=== PATIENT | female | born 1990 | race Asian ===

== ENCOUNTER → 2018-07-11 15:58 | Outpatient (CLI) | payer SELFPAY ==
[2016-07-13 19:38] VITALS: BMI 22.4
== END ==
PROVIDERS: Family Provider Family Medicine; PCP Family Medicine; Referring Provider Otolaryngology; Visit Provider Otolaryngology
DX: J02.9 Acute pharyngitis, unspecified (principal)
CPT/HCPCS: 87070; 87077; 87186

== ENCOUNTER → 2020-05-05 07:57 | Outpatient (CLI) | payer MEDICAID, SELFPAY ==
[2020-04-14 14:42] VITALS: BMI 27.0
[2020-05-05 09:01] LABS: Absolute Lymphocyte Count 1.67 X10^3/uL (0.83-4.51); Basophil# 0.04 X10^3/uL; Basophil% 0.5 % (0-1); Eosinophil# 0.14 X10^3/uL; Eosinophils% 1.9 % (0-5); Hematocrit 31.6 % (37-47); Hemoglobin 10.6 g/dL (12.0-15.0); Lymphocyte # 1.67 X10^3/ul (4.0); Lymphocyte % 22.5 % (19-41); Mean Corp Hgb Conc 33.5 g/dL (32-36); Mean Corpuscular Hgb 29.6 pg (27.0-32.0); Mean Corpuscular Volume 88.3 fL (81-99); Mean Platelet Vol. 9.7 fl (6.2-12.0); Monocyte# 0.49 X10^3/uL; Monocyte% 6.6 % (0-10); NRBC Flagged by Analyzer 0 % (0-5); Neutrophil # 4.96 X10^3/uL (2.7-7.7); Neutrophil % 66.9 % (47-70); Platelet Count 218 K/mm3 (150-450); RBC Distribution Width SD 42.3 fl (35.1-43.9); Red Blood Count 3.58 M/mm3 (4.2-5.4); White Blood Count 7.4 K/mm3 (4.4-11.0)
[2020-05-05 09:19] LABS: Glucose Challenge Gest 1H 50g 159 mg/dL (70-140)
== END ==
PROVIDERS: PCP Family Medicine; Referring Provider Obstetrics & Gynecology; Visit Provider Obstetrics & Gynecology
DX: Z34.90 Encounter for supervision of normal pregnancy, unspecified, unspecified trimester (principal); Z13.1 Encounter for screening for diabetes mellitus
CPT/HCPCS: 36415; 82950; 85025; 87086; 87088

== ENCOUNTER → 2020-05-10 10:05 | Outpatient (CLI) | payer MEDICAID, SELFPAY ==
[2020-05-05 08:20] VITALS: BMI 27.1
[2020-05-10 11:04] LABS: Glucose GTT-Gestation. Fasting 82 mg/dL (<105)
== END ==
PROVIDERS: PCP Family Medicine; Referring Provider Nurse Practitioner Women's Health; Visit Provider Nurse Practitioner Women's Health
DX: O99.810 Abnormal glucose complicating pregnancy (principal); Z3A.00 Weeks of gestation of pregnancy not specified
CPT/HCPCS: 36415; 82951; 82952

== ENCOUNTER → 2020-05-24 08:05 | Outpatient (CLI) | payer OTHER, MEDICAID, SELFPAY ==
[2020-05-19 15:04] VITALS: BMI 27.6
--- NOTE | 2020-05-24 08:09 | US_ITS ---
STUDY: SECOND AND THIRD TRIMESTER OBSTETRICAL ULTRASOUND - LIMITED REASON FOR EXAM: Female, 29 years old GROWTH, GESTATIONAL DIABETES LMP: 10/22/2019. PRIOR ULTRASOUND: None. TECHNIQUE: Transabdominal TECHNICAL QUALITY: Adequate. FINDINGS: There is a single intrauterine fetus. The fetus is in a cephalic presentation. There is demonstrated cardiac activity with a heart rate of 145 bpm. There is a normal amniotic fluid volume. The largest amniotic fluid pocket measures 6.6 cm. The amniotic fluid index (BROOKLYNN) is 23.5 cm. This is suggestive polyhydramnios. The placenta is posterior in location and is not low lying. There are Grade 1 placental changes. The cervix measures 3.1 cm in length. BIOMETRY: BPD: 7.82 cm: 31 weeks, 2 days HC: 28.94 cm: 31 weeks, 6 days AC: 27.89 cm: 31 weeks, 6 days FL: 5.23 cm: 27 weeks, 6 days Age by LMP: 30 weeks, 5 days. MAYURI by LMP: 07/28/2020. age by current US: 30 weeks, 6 days. MAYURI by current US: 07/27/2020. Estimated weight: 1612 grams, +/- 239 grams, 31.3 percentile. US/OB Limited With Biometrics IMPRESSION: Single live uterine gestation with a mean gestational age of 30 weeks and 5 days. Polyhydramnios. Electronically Signed: Félix Matias, at 12:59 EST , Service support ,
== END ==
PROVIDERS: PCP Family Medicine; Referring Provider Obstetrics & Gynecology; Visit Provider Obstetrics & Gynecology
DX: O24.419 Gestational diabetes mellitus in pregnancy, unspecified control (principal); Z3A.30 30 weeks gestation of pregnancy
CPT/HCPCS: 76816

== ENCOUNTER 2020-06-09 11:00 | Outpatient (RCR) | payer OTHER, SELFPAY ==
[2020-05-19 15:04] VITALS: BMI 27.6
== END 2020-06-09 23:59 | disposition home or self-care (01) ==
LOC: DC 11:00
PROVIDERS: PCP Family Medicine; Visit Provider Obstetrics & Gynecology
DX: Z71.3 Dietary counseling and surveillance (principal); O24.419 Gestational diabetes mellitus in pregnancy, unspecified control; Z3A.00 Weeks of gestation of pregnancy not specified
CPT/HCPCS: 97802; G0108

== ENCOUNTER 2020-06-16 14:04 | Outpatient (RCR) | payer MEDICAID, SELFPAY ==
[2020-06-04 16:06] VITALS: BMI 29.0
== END 2020-07-11 23:59 ==
LOC: DC 14:04
PROVIDERS: PCP Family Medicine; Visit Provider Obstetrics & Gynecology
DX: Z71.3 Dietary counseling and surveillance (principal); O24.419 Gestational diabetes mellitus in pregnancy, unspecified control; Z3A.00 Weeks of gestation of pregnancy not specified

== ENCOUNTER → 2020-06-21 08:10 | Outpatient (CLI) | payer OTHER, MEDICAID, SELFPAY ==
[2020-05-19 15:04] VITALS: BMI 27.6
[2020-06-18 15:39] VITALS: BMI 29.0
--- NOTE | 2020-06-21 08:18 | US_ITS ---
STUDY: SECOND AND THIRD TRIMESTER OBSTETRICAL ULTRASOUND REASON FOR EXAM: Female, 29 years old growth LMP: 10/22/2019. TECHNIQUE: Transabdominal TECHNICAL QUALITY: Adequate. PRIOR ULTRASOUND: Comparison is made with prior study dated 05/24/2020. FINDINGS: There is a single intrauterine fetus. The fetus is in a cephalic presentation. There is demonstrated cardiac activity with a heart rate of 133 bpm. There is a normal amniotic fluid volume. The largest amniotic fluid pocket measures 11.5 cm. The amniotic fluid index (BROOKLYNN) is 28.4 cm. This is elevated. The placenta is fundal and posterior in location. There are Grade 2 placental changes. The cervix measures 3.7 cm in length. The adnexal regions are not visualized. BIOMETRY: BPD: 8.5 cm: 34 weeks, 1 days HC: 30.5 cm: 33 weeks, 6 days AC: 31.5 cm: 35 weeks, 2 days FL: 6.4 cm: 32 weeks, 6 days CI: 84% FL/BPD: 75% FL/HC: FL/AC: 20% HC/AC: 0.97 age by current US: 33 weeks, 3 days. MAYURI by current US: 08/06/2020. Estimated weight: 2476 grams, +/- 371 grams, 43 %. age by prior US: 34 weeks, 6 days. MAYURI by prior US: 07/27/2020. Age by LMP: 34 weeks, 5 days. MAYURI by LMP: 07/28/2020. US/OB Limited With Biometrics IMPRESSION: Single live intrauterine gestation with a mean gestational age of 34 weeks and 6 days. The measurements obtained today following the normal expected range. Elevated amniotic fluid index. Electronically Signed: Félix Matias MD at 9:23 EST , Service support ,
== END ==
PROVIDERS: PCP Family Medicine; Referring Provider Obstetrics & Gynecology; Visit Provider Obstetrics & Gynecology
DX: O24.419 Gestational diabetes mellitus in pregnancy, unspecified control (principal); Z3A.34 34 weeks gestation of pregnancy
CPT/HCPCS: 76816

== ENCOUNTER → 2020-07-02 | Outpatient (CLI) | payer OTHER, MEDICAID, SELFPAY ==
[2020-07-02 15:29] VITALS: BMI 29.9
== END | disposition home or self-care (01) ==
LOC: LABSPEC 16:33
PROVIDERS: PCP Family Medicine; Referring Provider Obstetrics & Gynecology; Visit Provider Obstetrics & Gynecology
DX: Z34.90 Encounter for supervision of normal pregnancy, unspecified, unspecified trimester (principal)
CPT/HCPCS: 87081

== ENCOUNTER → 2020-07-12 14:15 | Outpatient (CLI) | payer OTHER, SELFPAY ==
[2020-07-02 15:29] VITALS: BMI 29.9
[2020-07-09 15:29] VITALS: BMI 29.6
== END ==
PROVIDERS: Nurse Practitioner Women's Health; PCP Family Medicine; Visit Provider Obstetrics & Gynecology
DX: Z20.822 Contact with and (suspected) exposure to COVID-19 (principal)
CPT/HCPCS: 87635; C9803; U0005; U0003

== ENCOUNTER → 2020-07-19 14:31 | Outpatient (CLI) | payer OTHER, MEDICAID, SELFPAY ==
[2020-05-19 15:04] VITALS: BMI 27.6
--- NOTE | 2020-07-19 14:33 | US_ITS ---
STUDY: OBSTETRICAL ULTRASOUND - BIOPHYSICAL PROFILE REASON FOR EXAM: Female, 29 years old. well being. LMP: 10/22/2019. PRIOR ULTRASOUND: 07/19/2020, 06/21/2020 and 05/24/2019 TECHNIQUE: Transabdominal TECHNICAL QUALITY: Adequate. FINDINGS: There is a single intrauterine fetus. The fetus is in a cephalic presentation. There is demonstrated cardiac activity with a heart rate of 6.14 bpm. There is a normal amniotic fluid volume. The largest amniotic fluid pocket measures 6.14 cm. The amniotic fluid index (BROOKLYNN) is 18.08 cm. The placenta is fundal in location. There are Grade 3 placental changes. Age by LMP: 38 weeks, 5 days. MAYURI by LMP: 07/28/2020.. age by initial US: 38 weeks, 6 days. MAYURI by initial US: 07/27/2020. age by most recent US: 37 weeks, 3 days. MAYURI by most recent US: 08/06/2020. age by current US: 36 weeks, 5 days. MAYURI by current US: 08/11/2020. Gender: Indeterminant BIOPHYSICAL PROFILE: Breathing Movements (FBM): 2 Gross Body Movements (GBM): 2 Tone (FT): 2 Amniotic Fluid Volume (AFV): 2 TOTAL SCORE: 8 / 8 US/Biophysical Prof W/O Non Stres IMPRESSION: Normal biophysical profile of 12/19. Electronically Signed: Bharat Zhu DO at 16:22 EST Tel [phone], Service support ,
--- NOTE | 2020-07-19 14:33 | US_ITS ---
STUDY: SECOND AND THIRD TRIMESTER OBSTETRICAL ULTRASOUND - LIMITED REASON FOR EXAM: Female, 29 years old. growth. Patient scheduled for on July 22. LMP: 10/22/2019. PRIOR ULTRASOUND: 06/21/2020 and 05/24/2020 TECHNIQUE: Transabdominal TECHNICAL QUALITY: Adequate. FINDINGS: There is a single intrauterine fetus. The fetus is in a cephalic presentation. There is demonstrated cardiac activity with a heart rate of 148 bpm. There is a normal amniotic fluid volume. The largest amniotic fluid pocket measures 6.14 cm. The amniotic fluid index (BROOKLYNN) is 18.08 cm. There is debris within the amniotic fluid. The placenta is fundal in location. There are Grade there are placental changes. The cervix is obscured. BIOMETRY: BPD: 8.99 cm: 36 weeks, 2 days HC: 33.94 cm: 39 weeks, 0 days AC: 34.17 cm: 38 weeks, 0 days FL: 6.55 cm: 33 weeks, 5 days Age by LMP: 38 weeks, 5 days. MAYURI by LMP: 07/28/2020. age by initial US: 38 weeks, 6 days. MAYURI by initial US: 07/27/2020. age by most recent US: 37 weeks, 3 days. MAYURI by most recent US: 08/06/2020 age by current US: 36 weeks, 5 days. MAYURI by current US: 08/11/2020. Estimated weight: 3039 grams, +/- 456 grams, 23 percentile. Gender: Indeterminant US/OB Limited With Biometrics IMPRESSION: 1. Live single intrauterine at 36 weeks, 5 days. MAYURI is 08/11/2020. This lags approximately 2 weeks behind initial ultrasound. Low position there was difficulty in obtaining head measurements which may contribute to this differential. This does however correlate with the most recent ultrasound of June 21 which placed the AMBULATORY CARE NURSE 08/06/2020. 2. EFW of 3039 g. 3. BROOKLYNN of 18.08 cm. Well in the normal range (greater than expected for the gestational age. 4. Fundal grade 3 placenta. 5. VERTEX presentation Electronically Signed: Bharat Zhu DO at 16:20 EST Tel [phone], Service support ,
== END ==
LOC: OPUS 14:32 → US 14:33
PROVIDERS: PCP Family Medicine; Referring Provider Obstetrics & Gynecology; Visit Provider Obstetrics & Gynecology
DX: O40.9XX3 Polyhydramnios, unspecified trimester, fetus 3 (principal); Z3A.36 36 weeks gestation of pregnancy; O24.419 Gestational diabetes mellitus in pregnancy, unspecified control
CPT/HCPCS: 76816; 76819

== ENCOUNTER 2020-07-22 09:15 | Inpatient (IN) | payer OTHER, MEDICAID, SELFPAY ==
[2020-05-05 08:20] VITALS: BMI 27.1
[2020-07-22] VITALS (18 sets, daily range): BP systolic 97–129; BP diastolic 50–78; PULSE 68–93; RESP 12–18; TEMP 36.1–36.8; O2SAT 96–100; BMI 30.1
[2020-07-22] MEDS: Lactated Ringers 1,000 ML 999 ML IV (09:55)
--- NOTE | 2020-07-22 10:15 | HP.PCM_ITS ---
- Problem List (1) 36 weeks gestation of Status: Acute Comment: electronic covid test ordered 06/30/20. [place] 07/12/20 1:40m NEGATIVE COVID (2) Anemia affecting Status: Acute Qualifiers: Comment: iron added (3) Gestational diabetes Status: Acute Comment: Dx based on persistently elevated home BGT monitoring. Endo referral. Shot Core Drill Operator Helper referral. Growths q4w. Discussed timing of delivery based on glycemic control. (4) History of tetanus, diphtheria, and acellular pertussis booster vaccination (Tdap) Status: Acute Comment: 05/05/20 (5) Hx of section Status: Acute Comment: Op note reviewed after NOB - arrest of dilation and CPD documented by Dr. Webb. Plan RCD. RLTCS scheduled 07/22/20 @ 12 (6) Influenza vaccination declined Status: Acute (7) Major depression Status: Acute Comment: On zoloft. encouraged counseling. had traumatic delivery with previous experience- discussed details and reframing. (8) Polyhydramnios affecting Status: Acute Comment: growth 06/21- BROOKLYNN 28 (9) Status: Acute Qualifiers: Comment: Quad screen done with [facility]. NL anatomy 03/02/20; Urine tox is neg (10) Supervision of normal Status: Acute Qualifiers: Comment: JORGE L [facility]@17w PRR [facility] 07/28/20 [facility]: [facility], Spouse: Kishan History and Physical Date of Admission: 07/22/20 Intake Vital Signs 07/16/20 Height 5 ft 1 in 07/16/20 Weight: 159 lb 07/16/20 BMI 30.0 07/16/20 BP 100/72 Intake Visit Reasons: 38WK OB / NST Rate And Cost Analyst Required: No Is patient in pain?: No Allergies clarithromycin [From Biaxin] Allergy (Verified 07/16/20 15:52) Hives Medications cetirizine 10 mg tablet 10 mg PO DAILY 02/18/20 [History Confirmed 07/16/20] docosahexaenoic acid 200 mg capsule mg PO 02/18/20 [History Confirmed 07/16/20] fluticasone propionate 50 mcg/actuation nasal spray,suspension 1 spray INTRANASAL DAILY PRN 02/18/20 [History Confirmed 07/16/20] buspirone 5 mg tablet 5 mg PO BID PRN #60 tab 06/04/20 [Rx Confirmed 07/16/20] sertraline 100 mg tablet 150 mg PO DAILY #45 tab 06/04/20 [Rx Confirmed 07/16/20] Last Menstral Period: 10/23/19 : No PFSH PFSH Medical History Major depression (Acute) Surgical History S/P (Resolved) Family History Grandfather Myocardial infarction Social History (Updated 07/16/20 @ 16:[address] Lyudmila Adams MD) Smoking Status: Former smoker alcohol intake: never substance use type: does not use caffeine: Yes what type of physical activity do you participate in: none seatbelt use: always do you feel safe at home: Yes additional social history: [employer] at [employer] Patient works at [email or web address] Pregancy History 2 Elective abortions Hx Para 1 Spontaneous abortions Hx # Term Pregnancies Ectopic pregnancies Hx # Pregnancies Multiple births # of living children 1 Past Pregnancies Del. Date Name GA/Weeks Outcome Route Bth Weight Infant Gen Labor Lgth Anesthesia Del [facility] Provider FOB 11/13/12 [facility] 39 live - full term 7lbs 6oz Male [facility] Dr. Lopez No issues during , per patient csection due to brain swelling HPI 38WK OB / NST : Details: PJ CROWE is a 29 year old who presents for routine OB visit. OB Visit MAYURI Calculator Estimated Delivery Date Method Current WG Current Estimate 07/28/20 LMP (Certain) 38w 2d Expected Delivery Route/Plan planning RLTCS - h/o traumatic delivery with PTSD like symptoms regarding experience. Labor Preferences- : yes PP control planned: [] special requests: [] Specific Issue/Plans flu vaccine: no tdap vaccine: yes rhogam: na LARC form signed: yes movement and labor precautions reviewed. Problem list reviewed and updated with the most current plan of care details and appropriate orders placed. Relevant counseling for the gestational age provided. Continue routine care and follow up unless otherwise noted in visit notes/problem list details Initial Weight: Not Recorded Date EGA Weight BP Urine Prot Glucose FHR FuHt Pres Dilation Effaced St Visit Note 02/18/20 17w 0d 130 lb 4 oz 112/72 Negative Negative 135 GP - JORGE L from [facility]. Oriented to practice. Denies LOF, VB, cramping. First movement while in office today! 03/17/20 21w 0d 135 lb 132/82 Negative Negative 145 22 SM- no vb cramping. reviewed nl us. 04/14/20 25w 0d 143 lb 120/80 150 25 GP - no LOF, VB, DFM, ctx. Denies complaints. Planning for RCD. GCT next visit. 05/05/20 28w 0d 144 lb 108/60 Negative Negative 155 28 MH-No VB, LOF. Good FM. Plans RCS with SM. Note to schedule. 28 wk labs, tdap, larc 05/19/20 30w 0d 146 lb 2 oz 128/70 Negative Negative 135 30 GP - no LOF, VB, DFM, ctx. Reviewed home BGTs - persistently elevated. Plan endo and aerosol supervisor referral. 06/04/20 32w 2d 154 lb 125/78 Negative Negative 135 33 SM- reviewed BS and mostly within goal, met with nurse yesterday for diet. discussed persistence anxiety and depression. recommend consistent counseling and 06/18/20 34w 2d 154 lb 116/58 Negative Negative 140 34 Cephalic SM- no vb lof good fm no regular ctx 06/21/20 34w 5d 152 lb nst only 07/02/20 36w 2d 158 lb 4 oz 120/70 Negative Negative 130 36 Cephalic 0 GP - no LOF, VB, DFM, ctx. GBS done today. NST reactive 07/09/20 37w 2d 157 lb Negative Negative 140 Cephalic SM- no vb lof good fm no regular ctx nst reactive 07/16/20 38w 2d 159 lb 100/72 Negative Negative 145 SM- no vb lof good but decreased fm no regular ctx will get bpp sunday Diagnostics Diagnostics Diagnostics Gest Glucose Tolerance MG/DL 05/10/20 Details: HIV: Urine Culture: Sequential Screen: NIPT Screen: ROS Const Reports system reviewed and no additional complaints, except as docu Card Reports system reviewed and no additional complaints, except as docu Resp Reports system reviewed and no additional complaints, except as docu GI Reports system reviewed and no additional complaints, except as docu, Reports n ausea Reports system reviewed and no additional complaints, except as docu Musc Reports system reviewed and no additional complaints, except as docu Exam Const General: cooperative, healthy appearing, comfortable, anxious HENMT Head: normal to inspection Nose: external nose normal Face and sinus: normal facial exam Neck Neck: normal visual inspection, full ROM, no lymphadenopathy Thyroid: thyroid normal Chest Chest palpation & inspection: normal inspection of the chest Resp Effort & Inspection: normal respiratory effort GI Inspection: normal to inspection Palpation: soft, other (gravid uterus) Other: vertex and appropriate size for gestational age Other: Cervical Exam: Extrem General: pedal edema Results POC Urinalysis 2 Dip (Clinic) Office Urine Glucose Negative Last Edit by Cande Monae on 07/16/20 15:58 Office Urine Protein Negative Last Edit by Cande Monae on 07/16/20 15:58 Assessment & Plan Problems 1. Influenza vaccination declined Z28. 2. Z34.90 Quad screen done with [facility]. NL anatomy 03/02/20; Urine tox is neg 3. Supervision of normal Z34.90 JORGE L [facility]@17w PRR [facility] 07/28/20 [facility], PC: Froylan, Spouse: Kishan 4. Hx of section Z98.891 Op note reviewed after NOB - arrest of dilation and CPD documented by Dr. Webb. Plan RCD. RLTCS scheduled 07/22/20 @ 12 5. Anemia affecting O99.019 iron added 6. Gestational diabetes O24.419 Dx based on persistently elevated home BGT monitoring. Endo referral. Shot Core Drill Operator Helper referral. Growths q4w. Discussed timing of delivery based on glycemic control. 7. Polyhydramnios affecting O40.9XX0 growth 28- BROOKLYNN 28 8. 36 weeks gestation of Z3A.36 electronic covid test ordered 06/30/20. [place] 07/12/20 1:40m NEGATIVE COVID 9. History of tetanus, diphtheria, and acellular pertussis booster vaccination (Tdap) Z92.29 05/05/20 10. Major depression F32.9 On zoloft. encouraged counseling. had traumatic delivery with previous experience- discussed details and reframing. plan RLTCS UPDATE- I have seen the patient and performed any clinically relevant updates to the history and physical exam. Lyudmila Adams MD
--- NOTE | 2020-07-22 10:18 | OP.PCM_ITS ---
Problem List (1) 36 weeks gestation of Status: Acute Comment: electronic covid test ordered 06/30/20. [place] 07/12/20 1:40m NEGATIVE COVID (2) Anemia affecting Status: Acute Qualifiers: Comment: iron added (3) Gestational diabetes Status: Acute Comment: Dx based on persistently elevated home BGT monitoring. Endo referral. Chain Offbearer referral. Growths q4w. Discussed timing of delivery based on glycemic control. (4) History of tetanus, diphtheria, and acellular pertussis booster vaccination (Tdap) Status: Acute Comment: 05/05/20 (5) Hx of section Status: Acute Comment: Op note reviewed after NOB - arrest of dilation and CPD documented by Dr. Webb. Plan RCD. RLTCS scheduled 07/22/20 @ 12 (6) Influenza vaccination declined Status: Acute (7) Major depression Status: Acute Comment: On zoloft. encouraged counseling. had traumatic delivery with previous experience- discussed details and reframing. (8) Polyhydramnios affecting Status: Acute Comment: growth 06/21- BROOKLYNN 28 (9) Status: Acute Qualifiers: Comment: Quad screen done with [facility]. NL anatomy 03/02/20; Urine tox is neg (10) Supervision of normal Status: Acute Qualifiers: Comment: JORGE L [facility]@17w PRR [facility] 07/28/20 [facility]: [place], Spouse: Kishan Delivery Classification: Scheduled Final MAYURI: 07/29/20 Gestational age: 39 Weeks and 1 Days Type of Anesthesia:: Spinal Special Medications: none Implants Used: none Date of Procedure: 07/22/20 Pre-Operative Diagnosis: [id number] previous cs Post-Operative Diagnosis: same Indications for : Repeat Elective Description of Procedure: Spinal anesthesia was placed without difficulty. Haji catheter was placed. The patient was placed in the dorsal supine position with leftward tilt. Patient was prepped and draped in the normal sterile fashion. Pfannenstiel skin incision was made with the scalpel and carried through to the underlying layer of fascia with the scalpel. Fascia was nicked in the midline and the incision extended laterally. The rectus bellies were dissected off superiorly and inferiorly with out complication both sharply and bluntly. The peritoneum was entered digitally. The incision was stretched and a low transverse uterine incision was made with the scalpel. The infant's head was delivered atraumatically followed by the anterior and posterior shoulders without compli cation the rest of the infant delivered. The cord was clamped and cut and the was handed off to awaiting nurse. The placenta was delivered spontaneously immediately following and was noted to be intact and have a three- vessel cord. The uterus was exteriorized cleared of all clots and debris, and the incision was closed in a double layer closure using #1 Monocryl. The ovaries and fallopian tubes were noted to be within normal limits. The uterus was returned to the maternal abdomen and gutters were cleared of all clots and debris. The peritoneum was closed with 3-0 Monocryl in a running fashion. Gloves were changed prior to fascial closure. Fascia was closed with 0 PDS in a running fashion. Subcutaneous tissue was copiously irrigated and the skin was closed with 3-0 Monocryl in a subcuticular fashion. Mepilex dressing was applied without complication. Patient was taken to recovery in stable condition. It was discussed with the patient that based on the clinical information obtained during this encounter, combined with her history, at this time I would recommend cesareans for future deliveries if further pregnancies are desired. Amniotic Membrane Rupture Type: Spontaneous Amniotic Fluid Description: Clear Placenta Disposition: [facility] Cord Entanglement: None Cord Vessel Description: 3 Vessels Esitmated Blood Loss (ml): 700 Infant Gender: Male Delayed cord clamping: Yes Antibiotic Given: Ancef 2 grams IV x1 Pt instructed on risks of surgery: Bleeding, Anesthesia Risks, Infection, Injury to surrounding structure(s) including bowel and bladder Complications: None - Admit VTE Documentation VTE Present on Admission: No VTE Mechan Device Prophylaxis: SCD's Multi Select Codes - Urinary/Genital Urinary/Genital CPT Codes: 90740 Delivery [facility]
--- NOTE | 2020-07-22 10:23 | PCM.DCCSEC ---
Discharge Diet: No Restrictions Discharge Activity: May Not Drive - for 2 weeks, May not drive while taking narcotic pain medications., May Shower, May Take a Tub Bath - in 7 days May resume sexual activity in: 4-6 weeks Lifting Restrictions: 20 pounds Additional Activity Instructions:: Nothing in the vagina for 4-6 weeks. You may return to work/school in 6 weeks. Call your doctor if your incision/area has: Continuous Slow Oozing, Sudden Increased Bleeding, Increased Pain/ Swelling, Increased Redness, Foul Smelling Discharge Call your doctor if you observe: Fever of 101 or Higher, Using more than one pad per hour - for 2 hours Suture Line Care: Avoid Pulling/Pushing, Avoid Pinching/Bending Cleanse incision/area with: Keep Dressing Clean & Dry Additional Instructions: If you experience any of the following, contact your healthcare provider. Bleeding that soaks a pad every hour for 2 hours Fever 100.4 or higher Unrelieved incision or abdominal pain Swelling, redness, discharge or bleeding from your incision or episiotomy site Your incision begins to separate Problems urinating (including inability to urinate or burning while urinating). Visual changes Severe headache Flu-like symptoms Pain or redness in one of both of your breasts Pain, warmth, tenderness or swelling in your legs, especially the calf area Frequent nausea and vomiting Symptoms of depression or anxiety If you experience any of the following, call 911 or go to the nearest Emergency Room. Chest pain Problems breathing Seizure activity Partial or complete paralysis of a body part, slurred speech, weakness or drooping of the face, or a sudden inability to walk or hold your balance Allergies/Adverse Reactions: Allergies clarithromycin [From Biaxin] Allergy (Verified 07/16/20 15:52) Hives Medications to take at Discharge cetirizine 10 mg tablet 10 mg PO DAILY 02/18/20 docosahexaenoic acid 200 mg capsule mg PO 02/18/20 fluticasone propionate 50 mcg/actuation nasal spray,suspension 1 spray INTRANASAL DAILY PRN 02/18/20 buspirone 5 mg tablet 5 mg PO BID PRN #60 tab 06/04/20 sertraline 100 mg tablet 150 mg PO DAILY #45 tab 06/04/20 Naproxen [Naprosyn] 250 - 500 mg PO Q8H PRN PRN #30 tab 07/22/20 Oxycodone HCl/Acetaminophen [Percocet 5-325] 1 - 2 tablet PO Q6H PRN PRN 7 Days #15 tablet 07/22/20 The following prescriptions were given: Naproxen [Naprosyn] 250 - 500 mg PO Q8H PRN PRN #30 tab PRN Reason: MILD PAIN Transmission Status: Pending to [facility] Oxycodone HCl/Acetaminophen [Percocet 5-325] 1 - 2 tablet PO Q6H PRN PRN 7 Days #15 tablet PRN Reason: Pain Transmission Status: Sent to [facility] Follow-Up: Call to make an appointment with your doctor for an incision check in 1-2 weeks. You will also need a 6 week post- follow up appointment. Test results from this visit will be discussed in further detail at your follow-up appointment, if applicable. Please Follow Up With: Lyudmila Adams MD - Call to make an appointment for an incision check in 1-2 [phone] When: You will need a post- check in 6 weeks. Primary Care Physician: Scotty Shine MD [Primary Care Provider] -
[2020-07-22 10:30] LABS: Absolute Lymphocyte Count 1.51 X10^3/uL (0.83-4.51); Absolute Neutrophil Count 5.3 X10^3/uL (2.0-7.7); Basophil# 0.04 X10^3/uL; Basophil% 0.5 % (0-1); Eosinophil# 0.15 X10^3/uL; Eosinophils% 1.9 % (0-5); Hematocrit 34.6 % (37-47); Hemoglobin 11.4 g/dL (12.0-15.0); Lymphocyte # 1.51 X10^3/ul (4.0); Lymphocyte % 19.4 % (19-41); Mean Corp Hgb Conc 32.9 g/dL (32-36); Mean Corpuscular Hgb 28.9 pg (27.0-32.0); Mean Corpuscular Volume 87.8 fL (81-99); Mean Platelet Vol. 10.9 fl (6.2-12.0); Monocyte# 0.57 X10^3/uL; Monocyte% 7.3 % (0-10); NRBC Flagged by Analyzer 0 % (0-5); Neutrophil # 5.29 X10^3/uL (2.7-7.7); Neutrophil % 68.1 % (47-70); Platelet Count 217 K/mm3 (150-450); RBC Distribution Width CV 13.6 % (11.6-14.6); RBC Distribution Width SD 43.2 fl (35.1-43.9); Red Blood Count 3.94 M/mm3 (4.2-5.4); White Blood Count 7.8 K/mm3 (4.4-11.0)
[2020-07-22] MEDS: Lactated Ringers 1,000 ML 150 ML IV (10:56)
[2020-07-22] MEDS: Acetaminophen 500 MG Tablet 1000 MG PO ×2 (11:18→22:05)
[2020-07-22 11:45] LABS: Bedside Glucose 118 mg/dL (70-110)
[2020-07-22] MEDS: Sodium Citrate/Citric Acid 30 ML UDC PO (12:01)
[2020-07-22] MEDS: Cefazolin 2 GM in 0.9% Normal Saline 100 ML IV (12:07)
[2020-07-22] MEDS: Oxytocin 30 units/NS 500 ml 30 UNITS/500 ML IV.SOLN 167 UNITS IV (13:23)
[2020-07-22] MEDS: Ketorolac 30 MG/ML Syringe IV ×2 (13:57→20:33)
[2020-07-22 15:10] LABS: Bedside Glucose 71 mg/dL (70-110)
[2020-07-22] MEDS: Lactated Ringers 1,000 ML 100 ML IV (17:03)
[2020-07-23] MEDS: Ketorolac 30 MG/ML Syringe IV ×2 (00:36→08:41)
[2020-07-23] MEDS: 0.9% Saline Lock 10 ML Syringe IV (00:37)
[2020-07-23 00:40] VITALS: BP 121/69; PULSE 97; RESP 18; TEMP 36.4; O2SAT 99
[2020-07-23 04:55] VITALS: BP 110/65; PULSE 95; RESP 18; TEMP 36.3; O2SAT 100
[2020-07-23] MEDS: Acetaminophen 500 MG Tablet 1000 MG PO ×4 (04:55→22:10)
[2020-07-23 05:53] LABS: Hematocrit 30.6 % (37-47); Hemoglobin 10.1 g/dL (12.0-15.0); Mean Corpuscular Hgb 29.4 pg (27.0-32.0); Mean Platelet Vol. 10.2 fl (6.2-12.0); Platelet Count 166 K/mm3 (150-450); RBC Distribution Width CV 13.7 % (11.6-14.6); Red Blood Count 3.44 M/mm3 (4.2-5.4); White Blood Count 9.6 K/mm3 (4.4-11.0)
[2020-07-23 05:56] LABS: Bedside Glucose 93 mg/dL (70-110)
[2020-07-23 09:14] VITALS: BP 105/56; PULSE 77; RESP 16; TEMP 35.9; O2SAT 99
[2020-07-23] MEDS: Senna/Docusate Sodium 1 Tablet PO (10:40)
--- NOTE | 2020-07-23 11:39 | PN.OBGYN_ITS ---
Patient Problems: Active and Suspected Problems (Last Reviewed 07/22/20 @ 15:[address] Dayday Kaplan MD) 36 weeks gestation of (Acute) electronic covid test ordered 06/30/20. [place] 07/12/20 1:40m NEGATIVE COVID Polyhydramnios affecting (Acute) growth 06/21- [place] 28 Gestational diabetes (Acute) Dx based on persistently elevated home BGT monitoring. Endo referral. Nut Threader referral. Growths q4w. Discussed timing of delivery based on glycemic control. Anemia affecting (Acute) iron added History of tetanus, diphtheria, and acellular pertussis booster vaccination (Tdap) (Acute) 05/05/20 Hx of section (Acute) Op note reviewed after NOB - arrest of dilation and CPD documented by Dr. Webb. Plan RCD. RLTCS scheduled 07/22/20 @ 12 Supervision of normal (Acute) [facility]ORGE L [facility]@17w PRR [facility] 07/28/20 [facility]: [place], Spouse: Kishan (Acute) Quad screen done with [facility]. NL anatomy 03/02/20; Urine tox is neg Influenza vaccination declined (Acute) Major depression (Acute) On zoloft. encouraged counseling. had traumatic delivery with previous experience- discussed details and reframing. Subjective: Patient doing well without complaints. Tolerating PO. Ambulating and voiding without difficulty. feeding well. Denies chest pain, shortness of breath, calf pain/swelling, fevers, chills, lightheadedness. - Physical Exam Vitals/I&O's: Vital Signs Temp Pulse Resp BP Pulse Ox 96.6 F L 77 16 105/56 L 99 07/23/20 09:14 07/23/20 09:14 07/23/20 09:14 07/23/20 09:14 07/23/20 09:14 Oxygen Delivery Method Room Air Weight: 159 lb 8 oz Body Mass Index (BMI) 30.1 Intake and Output for Last 24 Hours 07/21/20 07/22/20 07/23/20 23:59 23:59 23:59 Intake Total 3133.33 / 3133.33 Output Total 1000 / 1000 1300 / 1300 Balance 2133.33 / 2133.33 -1300 / -1300 General: Alert, Oriented x3 Laboratory Results 07/22/20 09:55: Blood Type O POSITIVE, Antibody Screen NEGATIVE 07/22/20 11:14: POC Glucose 118 H 07/22/20 14:59: POC Glucose 71 07/23/20 05:45: WBC 9.6, RBC 3.44 L, Hgb 10.1 L, Hct 30.6 L, MCV 89.0, MCH 29.4, MCHC 33.0, RDW Std Deviation 44.0 H, RDW Coeff of Christen 13.7, Plt Count 166, MPV 10.2 07/23/20 05:47: POC Glucose 93 Current Medications Acetaminophen (Acetaminophen 500 Mg Tablet) 1,000 mg PO Q6H [facility] Last Admin: 07/23/20 10:40 Dose: 1,000 mg Documented by: Bisacodyl (Bisacodyl 10 Mg Suppository) 10 mg RC UD PRN PRN Reason: If no BM Dextrose (Dextrose 50%-Water 25 Gm/50 Ml Disp.Syrin) 0 gm IV X1 PRN; Protocol PRN Reason: Hypoglycemia Diphenhydramine HCl (Diphenhydramine 25 Mg Capsule) 25 mg PO Q6H PRN PRN PRN Reason: ITCHING Stop: 07/23/20 13:21 Glucagon (Glucagon 1 Mg/Ml Syringe) 1 mg IM .X1 PRN PRN Reason: Hypoglycemia Hydrocortisone (Hydrocortisone 2.5% Crm) 1 applic TOPICAL TID PRN PRN; Protocol PRN Reason: Discomfort Methylergonovine Maleate (Methylergonovine 0.2 Mg/Ml Ampul) 0.2 mg IM X1 PRN PRN Reason: Uterine Atony Nalbuphine HCl (Nalbuphine 10 Mg/Ml Ampul) 5 mg IV Q3H PRN PRN PRN Reason: ITCHING Stop: 07/23/20 13:21 Naloxone HCl (Naloxone 0.4 Mg/Ml Syringe) 0.02 mg IV Q1M PRN PRN Reason: RR <10 and pt unresponsive Naproxen (Naproxen 250 Mg Tablet) 500 mg PO Q8 [facility] Ondansetron HCl (Ondansetron 4 Mg/2 Ml Vial) 4 mg IV Q4H PRN PRN PRN Reason: Nausea Oxycodone HCl (Oxycodone 5 Mg Tablet) 5 - 10 mg PO Q4H PRN PRN PRN Reason: Pain Score 4-10 Oxycodone HCl (Oxycodone 5 Mg Tablet) 5 - 10 mg PO Q4H PRN PRN PRN Reason: Pain Score 4-10 Prochlorperazine Edisylate (Prochlorperazine 10 Mg/2 Ml Vial) 10 mg IV Q6H PRN PRN PRN Reason: NAUSEA Senna/Docusate Sodium (Senna/Docusate Sodium 1 Tablet) 0 tablet PO DAILY [facility] Last Admin: 07/23/20 10:40 Dose: 2 tablet Documented by: Simethicone (Simethicone 80 Mg Tablet) 80 mg PO PCHS PRN PRN Reason: Indigestion/stomach pain Sodium Chloride (0.9% Saline Lock 10 Ml Syringe) 5 - 15 ml IV UD PRN PRN Reason: SALINE FLUSH Last Admin: 07/23/20 00:37 Dose: 10 ml Documented by: Medical Necessity - Tobacco Use Smoking Status: Former smoker Assessment/Plan All Active Problems (Last Reviewed 07/22/20 @ 15:[address] Dayday Kaplan MD) 36 weeks gestation of (Acute) Polyhydramnios affecting (Acute) Gestational diabetes (Acute) Anemia affecting (Acute) History of tetanus, diphtheria, and acellular pertussis booster vaccination (Tdap) (Acute) Hx of section (Acute) Supervision of normal (Acute) (Acute) Influenza vaccination declined (Acute) Major depression (Acute) Abnormal glucose affecting (Resolved) s/p LTCS PPD # 1 1. routine post care 2. breast feeding- support given 3. rh positive 4. rubella immune FBS 93
[2020-07-23 14:00] VITALS: BP 114/62; PULSE 82; RESP 18; TEMP 36.3; O2SAT 97
[2020-07-23] MEDS: Naproxen 250 MG Tablet 500 MG PO ×2 (14:52→22:10)
[2020-07-23 19:40] VITALS: BP 105/68; PULSE 81; RESP 16; TEMP 36.4; O2SAT 98
[2020-07-24 02:34] VITALS: BP 111/65; PULSE 80; RESP 16; TEMP 36.5; O2SAT 98
[2020-07-24] MEDS: Acetaminophen 500 MG Tablet 1000 MG PO ×2 (04:59→10:42)
[2020-07-24] MEDS: Naproxen 250 MG Tablet 500 MG PO (06:15)
[2020-07-24 07:57] VITALS: BP 109/71; PULSE 69; RESP 16; TEMP 36.6; O2SAT 98
--- NOTE | 2020-07-24 09:03 | CASEMGMT ---
Addendum entered by Bárbara Rendon 07/24/20 12:35: Medical History(did not enter below in error): MOB: History of anxiety/depression, GDM, anemia. Baby: Born: 07/23/20, 12:29pm, Apgars 9 and 9 at one and five minutes. BENNETT Simmons Original Note: Social Work Assessment Labor and Delivery Unit Date/Time of Referral: 07/22/20, 15:58 Referred by: Dr. Adams Date/TIme of Intervention: 07/24/20 8:45am Reason for referral: History of anxiety/depression, takes buspar PRN History obtained from: MOB initially, then spoke w/MOB and FOB Household composition: MOB, FOB, 7 year old son, baby MOB and FOB together since June of 2019, this is FOB's first baby Patient's parent/guardian status: They are both guardians of this child. MOB has first child most of the time, FOB of first child has that child 4 hours during the week and every other weekend. 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 RADHA does plan to return to work after maternity leave. Infant Supplies: MOB reports to have all needed supplies including crib, car seat, clothing, diapers. They do not have formula yet but will get some on the way home if needed, MOB is trying to breastfeed. Childcare/Caregivers: MOB's parents, FOB's parents, FOB's siblings all help. Transportation: They have a car. Programs/Agencies involved: None Children's Services/Legal Issues: None Behavioral Health History: Mental Health: RADHA reports history of depression, severe after first delivery of baby as it was difficult. RADHA reports this delivery was much easier but is aware she can still struggle with . RADHA had a hospitalization in October of 2019, she reports is much better now and that it really helped. She states her meds were adjusted and she is doing well. RADHA confirms takes zoloft. RADHA denies and suicidal thoughts at this time. RADHA was in counseling, just stopped a couple of weeks ago as she was not vibing with her therapist. RADHA was open to information about and stated that she wanted to make sure other people knew that is hormonal and she cannot control it. FOB in shower, explained will review the information with both of them when he gets out, so he is aware. MOB reports JOSE is on Lexapro for depression. Substance Abuse: MOB reports no history or active substance abuse. RADHA does report JOSE drinks alcohol and smokes marijuana daily. She states he has been trying to cut back now with the arrival of the baby, states also he is working a lot. She does not think he wants any resources and prefer SW not speak to him about it. She states is not concerned for safety at all for herself of the children, SW spoke w/her twice about this and she denied that there are any safety concerns. SW asked how it impacts the family daily, she states it impacts behavior and their environment, did not elaborate on this. FOB then came out of the bathroom and SW gave both FOB and MOB resources, including information on shaken baby, safe sleeping, [facility] Resources(highlighted [facility] number as a 24 hour hotline), list of counseling agencies in the area should MOB decide to return to counseling, and information on depression and anxiety. SW reminded FOAmy that is impacted by hormones and may not be able to be controlled by MOB, he nodded in understanding. SW did review the information on depression, and signs to watch for, for both of them. SW encouraged MOB to speak w/physician if they notice an increase in symptoms. Both state understanding. Both MOB and FOB appropriate, engaged, asked questions and answered questions. MOB holding baby while SW in the room and trying to breastfeed. MOB seems appropriate in care and handling of baby while SW in the room. The new home sales consultant came in and plans to come back once SW is done, and MOB did want to speak w/the workforce consultant. Plan: Baby home w/FOB and MOB, MOB has resources if needed to re-engage in counseling, and parents have information to review in regard to depression, and aware to watch for warning signs. No further needs at this time. BENNETT Simmons
--- NOTE | 2020-07-24 09:14 | PN.OBGYN_ITS ---
Patient Problems: Active and Suspected Problems (Last Reviewed 07/22/20 @ 15:[address] Dayday Kaplan MD) 36 weeks gestation of (Acute) electronic covid test ordered 06/30/20. [place] 07/12/20 1:40m NEGATIVE COVID Polyhydramnios affecting (Acute) growth 06/21- [place] 28 Gestational diabetes (Acute) Dx based on persistently elevated home BGT monitoring. Endo referral. Seasoning Sprayer referral. Growths q4w. Discussed timing of delivery based on glycemic control. Anemia affecting (Acute) iron added History of tetanus, diphtheria, and acellular pertussis booster vaccination (Tdap) (Acute) 05/05/20 Hx of section (Acute) Op note reviewed after NOB - arrest of dilation and CPD documented by Dr. Webb. Plan RCD. RLTCS scheduled 07/22/20 @ 12 Supervision of normal (Acute) [facility] L [facility]@17w PRR [facility] 07/28/20 [facility]: [place], Spouse: Kishan (Acute) Quad screen done with [facility]. NL anatomy 03/02/20; Urine tox is neg Influenza vaccination declined (Acute) Major depression (Acute) On zoloft. encouraged counseling. had traumatic delivery with previous experience- discussed details and reframing. Subjective: Patient doing well without complaints. Tolerating PO. Ambulating and voiding without difficulty. Breast feeding well. Denies chest pain, shortness of breath, calf pain/swelling, fevers, chills, lightheadedness. - Physical Exam Vitals/I&O's: Vital Signs Temp Pulse Resp BP Pulse Ox 97.8 F 69 16 109/71 98 07/24/20 07:57 07/24/20 07:57 07/24/20 07:57 07/24/20 07:57 07/24/20 07:57 Oxygen Delivery Method Room Air Weight: 159 lb 8 oz Body Mass Index (BMI) 30.1 Intake and Output for Last 24 Hours 07/22/20 07/23/20 07/24/20 23:59 23:59 23:59 Intake Total 3133.33 / 3133.33 Output Total 1000 / 1000 1300 / 1300 Balance 2133.33 / 2133.33 -1300 / -1300 General: Alert, Oriented x3, Cooperative, No apparent distress, Well developed, Well nourished HEENT: Atraumatic, PERRLA, EOMI, Normocephalic Neck: Supple, No JVD Lungs: Normal air movement Cardiovascular: Regular rate Abdomen: Soft, Non Tender, Non-Distended, - - fundus firm, incision c/d/i Extremities: No edema, No Calf Tenderness Neurological: Cranial nerves II-XII grossly intact, Neuro grossly intact Psych/Mental Status: Normal Affect, Appropriate Current Medications Acetaminophen (Acetaminophen 500 Mg Tablet) 1,000 mg PO Q6H [facility] Last Admin: 07/24/20 04:59 Dose: 1,000 mg Documented by: Bisacodyl (Bisacodyl 10 Mg Suppository) 10 mg RC UD PRN PRN Reason: If no BM Dextrose (Dextrose 50%-Water 25 Gm/50 Ml Disp.Syrin) 0 gm IV X1 PRN; Protocol PRN Reason: Hypoglycemia Glucagon (Glucagon 1 Mg/Ml Syringe) 1 mg IM .X1 PRN PRN Reason: Hypoglycemia Hydrocortisone (Hydrocortisone 2.5% Crm) 1 applic TOPICAL TID PRN PRN; Protocol PRN Reason: Discomfort Methylergonovine Maleate (Methylergonovine 0.2 Mg/Ml Ampul) 0.2 mg IM X1 PRN PRN Reason: Uterine Atony Naloxone HCl (Naloxone 0.4 Mg/Ml Syringe) 0.02 mg IV Q1M PRN PRN Reason: RR <10 and pt unresponsive Naproxen (Naproxen 250 Mg Tablet) 500 mg PO Q8 [facility] Last Admin: 07/24/20 06:15 Dose: 500 mg Documented by: Ondansetron HCl (Ondansetron 4 Mg/2 Ml Vial) 4 mg IV Q4H PRN PRN PRN Reason: Nausea Oxycodone HCl (Oxycodone 5 Mg Tablet) 5 - 10 mg PO Q4H PRN PRN PRN Reason: Pain Score 4-10 Oxycodone HCl (Oxycodone 5 Mg Tablet) 5 - 10 mg PO Q4H PRN PRN PRN Reason: Pain Score 4-10 Prochlorperazine Edisylate (Prochlorperazine 10 Mg/2 Ml Vial) 10 mg IV Q6H PRN PRN PRN Reason: NAUSEA Senna/Docusate Sodium (Senna/Docusate Sodium 1 Tablet) 0 tablet PO DAILY [facility] Last Admin: 07/23/20 10:40 Dose: 2 tablet Documented by: Simethicone (Simethicone 80 Mg Tablet) 80 mg PO PCHS PRN PRN Reason: Indigestion/stomach pain Sodium Chloride (0.9% Saline Lock 10 Ml Syringe) 5 - 15 ml IV UD PRN PRN Reason: SALINE FLUSH Last Admin: 07/23/20 00:37 Dose: 10 ml Documented by: Medical Necessity - Tobacco Use Smoking Status: Former smoker Assessment/Plan All Active Problems (Last Reviewed 07/22/20 @ 15:[address] Dayday Kaplan MD) 36 weeks gestation of (Acute) Polyhydramnios affecting (Acute) Gestational diabetes (Acute) Anemia affecting (Acute) History of tetanus, diphtheria, and acellular pertussis booster vaccination (Tdap) (Acute) Hx of section (Acute) Supervision of normal (Acute) (Acute) Influenza vaccination declined (Acute) Major depression (Acute) Abnormal glucose affecting (Resolved) s/p PPD # 2 1. routine post delivery care 2. breast feeding- support given 3. rh positive 4. rubella immune
[2020-07-24 12:35] VITALS: BP 123/71; PULSE 73; RESP 16; TEMP 36.4; O2SAT 99
== END 2020-07-24 14:25 | disposition home or self-care (01) | DRG 788 ==
PROVIDERS: Admitting Provider Obstetrics & Gynecology; PCP Family Medicine; Referring Provider Obstetrics & Gynecology; Visit Provider Obstetrics & Gynecology
PROC: 10D00Z1 Extraction of Products of Conception, Low, Open Approach (ICD-10-PCS; CPT 59514; principal; 2020-07-22 11:45)
DX: O24.420 Gestational diabetes mellitus in childbirth, diet controlled (principal); O99.02 Anemia complicating childbirth; O40.3XX0 Polyhydramnios, third trimester, not applicable or unspecified; Z3A.39 39 weeks gestation of pregnancy; Z37.0 Single live birth
CPT/HCPCS: 82962; 85025; 85027; 86850; 86900; 86901; 99218; 99251; J7120; A4216; G0378; G0463; J2405

== ENCOUNTER 2020-08-08 15:14 | Emergency (ER) | payer OTHER, MEDICAID, SELFPAY ==
[2020-07-22 10:20] VITALS: BMI 30.1
[2020-08-08] VITALS (7 sets, daily range): BP systolic 114–134; BP diastolic 69–76; PULSE 98–114; RESP 15–20; TEMP 37.3–38.8; O2SAT 95–97; BMI 26.4
[2020-08-08] MEDS: Ondansetron 4 MG/2 ML Vial IV (16:03)
[2020-08-08] MEDS: 0.9% Normal Saline 1,000 ML 999 ML IV (16:03)
[2020-08-08] MEDS: Morphine 4 MG/ML Syringe IV (16:04)
[2020-08-08] MEDS: Acetaminophen 500 MG Tablet 1000 MG PO (16:04)
[2020-08-08 16:14] LABS: Absolute Lymphocyte Count 1.13 X10^3/uL (0.83-4.51); Absolute Neutrophil Count 11.4 X10^3/uL (2.0-7.7); Basophil# 0.06 X10^3/uL; Basophil% 0.4 % (0-1); Eosinophil# 0.18 X10^3/uL; Eosinophils% 1.3 % (0-5); Hematocrit 39.5 % (37-47); Hemoglobin 12.7 g/dL (12.0-15.0); Lymphocyte # 1.13 X10^3/ul (4.0); Lymphocyte % 8.4 % (19-41); Mean Corp Hgb Conc 32.2 g/dL (32-36); Mean Corpuscular Hgb 28.2 pg (27.0-32.0); Mean Corpuscular Volume 87.6 fL (81-99); Mean Platelet Vol. 9.5 fl (6.2-12.0); Monocyte# 0.65 X10^3/uL; Monocyte% 4.8 % (0-10); NRBC Flagged by Analyzer 0 % (0-5); Neutrophil # 11.43 X10^3/uL (2.7-7.7); Neutrophil % 84.7 % (47-70); Platelet Count 334 K/mm3 (150-450); RBC Distribution Width CV 13.5 % (11.6-14.6); RBC Distribution Width SD 43.5 fl (35.1-43.9); Red Blood Count 4.51 M/mm3 (4.2-5.4); White Blood Count 13.5 K/mm3 (4.4-11.0)
[2020-08-08 16:19] LABS: Prothrombin Time (Protime)PT. 12.8 SECONDS (11.7-14.9)
[2020-08-08 16:20] LABS: Partial Thromboplast Time 27.6 Seconds (24.1-36.2)
--- NOTE | 2020-08-08 16:25 | ED.DCSUM_ITS ---
- ER Visit Summary Date of Service: 08/08/20 Chief Complaint: Fever History of Present Illness: The patient is a [address] Nixon [place] and Dr. Shine. Patient has a fever that began today. Is been 102.9 degrees at highest. She is also had chills and generalized weakness. Patient had a July [address] Nixon [place]. She is not breast- feeding. She reports that the incision looks good. She states that her vaginal discharge is been decreasing. There is no odor to this. She does report that she has right breast pain that began today. The area is very sensitive to the touch. She has not had this previously. Patient denies sore throat or cough. No abdominal pain, nausea, vomiting, or diarrhea. No dysuria or frequency. She states that she has a sharp headache that is 10 out of 10 in severity. There is no change in her headache with posture. She did have a spinal. Patient denies sick contacts. She does wear a mask. Physical Examination: Vitals: One 1.8, 134/69, 114, 20, 97% on room air which is not hypoxic. General: Well-nourished and well-developed. Head: Normocephalic atraumatic. Neck: Supple, no lymphadenopathy. No JVD. Nontender. Cardiovascular: Tachycardic regular rhythm. No murmurs. Respiratory: No respiratory distress. Clear to auscultation bilaterally. Abdominal: Soft, nontender, nondistended, normal bowel sounds. No guarding, rebound, or peritoneal signs. Incision from the is clean, dry, and intact. There is no erythema, warmth, or induration to suggest infection. It is mildly tender to palpation. Back: Nontender. Extremities: Nontender, no edema. Skin: Breasts are engorged bilaterally. However, the inferior lateral quadrant on the right is more firm and very tender. There is slight erythema. No induration or fluctuance to suggest an abscess. Neurologic: Alert and oriented ?3. Cranial nerves II through XII are intact. Normal strength and sensation. Psych: Normal affect. Test Results: CBC shows a white count of 13.5 with 85 segmented neutrophils and 8 lymphocytes. Coags are normal. Chem-7 shows a sodium 135 and glucose 113. LFTs show an alk phos of 123. Lactic acid is 1.5. Urinalysis is negative. Covid is negative. Clinical Impression(s) from Imaging Studies Chest X-Ray 08/08/20 16:50 IMPRESSION: Normal x-ray examination of the chest. Electronically Signed: Kathi Davis MD at 17:39 EDT , Service support , Emergency Department Course and Treatment: Patient had an IV placed. She was given a liter normal saline. She was given morphine and Zofran IV. She was given Rocephin IV. Treatment Plan: Patient was discussed with Dr. Blevins. She will be discharged on Keflex for mastitis. Instructed to call the office tomorrow to be seen for further evaluation and treatment. Return to the emergency department for any worsening symptoms. Disposition: To home in improved and stable condition. Impression: 1. Mastitis on right. 2. Status post July 22, 2020. This note was generated with [employer] software. It may contain incorrect words, spelling, and punctuation that were not noted in review of the chart prior to signing ED Disposition - Plan for ED Patient: Instructions: ED Mastitis Prescriptions: Cephalexin [Keflex] 500 mg PO Q6 #28 capsule Referrals: Lyudmila Adams MD [STAFF PHYSICIAN] - 1-2 Days if not improving
[2020-08-08 16:29] LABS: ALB/GLOB Ratio 0.9 RATIO (0.9-2.4); AST(SGOT) 25 U/L (15-37); Alanine Aminotransfer ALT/SGPT 36 U/L (13-56); Albumin, Serum 3.4 g/dL (3.2-5.0); Alkaline Phosphatase 123 U/L (45-117); Anion Gap 7 (5-15); BUN 14 mg/dL (7-18); BUN/Creat Ratio 17.6 RATIO (10-20); Calcium,Total 8.9 mg/dL (8.5-10.1); Chloride 102 mmol/L (98-107); EST Glomerular Filtration Rate 90 mL/min (>60); Est Glom Filt Rate - Afr Amer 109 mL/min (>60); Estimated Creatinine Clearance 77.59 ml/min; Globulin 3.6 g/dL (2.2-4.2); Glucose 113 mg/dL (74-106); Potassium 3.7 mmol/L (3.5-5.1); Sodium Level 135 mmol/L (136-145)
[2020-08-08 16:46] LABS: Lactic Acid 1.5 mmol/L (0.4-1.9)
[2020-08-08] MEDS: Ceftriaxone 1 GM/50 ML BAG IV (16:46)
--- NOTE | 2020-08-08 16:50 | RAD_ITS ---
STUDY: X-RAY CHEST REASON FOR EXAM: Female, 29 years old. Fever TECHNIQUE: 1 view COMPARISON: Prior chest radiograph 07/13/2016 FINDINGS: The lungs are clear and expanded. There is no demonstrated pleural abnormality. Normal size heart. Normal mediastinum and chris. Normal visualized pulmonary arteries. Normal visualized aortic arch and descending thoracic aorta. Normal visualized thoracic spine. Normal visualized ribs, clavicles, and shoulders. There is no demonstrated abnormality of the visualized soft tissue structures of the upper abdomen. RAD/Chest 1 View (Portable) IMPRESSION: Normal x-ray examination of the chest. Electronically Signed: Kathi Davis MD at 17:39 EDT , Service support ,
[2020-08-08 16:53] LABS: Bacteria 0 SEEN /hpf (None Seen); Mucous, Urine 0 SEEN /hpf (<or=2+); Red Blood Cells-Urine 0 SEEN /hpf (0-5); White Blood Cells 0 SEEN /hpf (0-5)
[2020-08-08 16:54] LABS: Color, Urine Yellow (Yellow); Glucose, Dipstick Normal (Normal); Ketone-Dipstick Negative (Negative); Leukocyte Esterase-Dipstick Negative /ul (Negative); Nitrite-Dipstick Negative (Negative); Occult Blood-Urine 10 /ul (Negative); Protein-Dipstick Negative (Negative); Urine Bilirubin Dipstick Negative (Negative); Urine Clarity Sl. Cloudy (Clear); Urine Urobilinogen Normal (Normal)
[2020-08-08 17:08] LABS: Squamous Epithelial Cells - UA 0-5 SEEN /hpf (5-10)
== END 2020-08-08 18:16 | disposition home or self-care (01) ==
LOC: ED 16:02
PROVIDERS: Emergency Provider Emergency Medicine; PCP Family Medicine
DX: N61.0 Mastitis without abscess (principal)
CPT/HCPCS: 71045; 80053; 81001; 83605; 85025; 85610; 85730; 87040; 87077; 87086; 87088; 87186; 87426; 96365; 96375; 99284; J7030; J2405

== ENCOUNTER → 2020-09-06 | Outpatient (CLI) | payer OTHER, MEDICAID, SELFPAY ==
[2020-09-06 16:23] VITALS: BMI 26.2
[2020-09-09 12:16] LABS: HPV APTIMA, High Risk Negative (Negative)
== END | disposition home or self-care (01) ==
PROVIDERS: PCP Family Medicine; Referring Provider Obstetrics & Gynecology; Visit Provider Obstetrics & Gynecology
DX: Z12.4 Encounter for screening for malignant neoplasm of cervix (principal)
CPT/HCPCS: 87624; 88175; G0145

== ENCOUNTER 2023-06-28 09:39 | Emergency (ER) | payer BC, OTHER, SELFPAY ==
[2023-06-28 09:40] VITALS: BP 126/86; PULSE 94; RESP 22; TEMP 37.7; O2SAT 100; BMI 24.7
[2023-06-28 09:55] VITALS: O2SAT 94
--- NOTE | 2023-06-28 10:08 | EDS_ITS ---
HPI HPI - URI History of Present Illness Chief Complaint: Dizziness Detail of Chief Complaint: Influenza B positive today. Ill for about 8 days. Informant: patient Onset/Context/Timing Onset: Days Context: Gradual Onset Timing: Continuous Current Severity: Mild Maximum Severity: Mild Associated Symptoms Associated Symptoms: Positive for Nasal Congestion, Myalgias, Nausea, Vomiting, Diarrhea and Nonproductive cough Narrative Narrative: 32-year-old female no seen past medical history has had URI symptoms for the last 8 days including a nonproductive cough, fever and chills and over the weekend had nausea vomiting and diarrhea which is since resolved. She still has fever between 100-101. She tested influenza positive today at an urgent care center and for further evaluation. She says she is dizzy when she stands up. She has been trying to push fluids. Prior similar symptoms: Yes Recent Illness/Hospitalization: No ROS ROS ED ROS Narrative Cough. Fever. Body aches. Nausea, vomiting diarrhea resolved. Review of Systems ROS Unobtainable: Denies due to encephalopathy Constitutional Constitutional ED: Reports chills and fever(s) Eyes Eyes: Denies blurry vision ENT ENT ED: Denies ear pain Cardiovascular Cardiovascular: Denies chest pain Respiratory/Chest Respiratory/Chest: Reports cough; Denies dyspnea, dyspnea on exertion or sputum Gastrointestinal Gastrointestinal: Reports diarrhea, nausea and vomiting; Denies abdominal pain, constipation or melena Genitourinary Genitourinary ED: Denies dysuria or hematuria Musculoskeletal Musculoskeletal: Denies arthralgias Integumentary Denies abscess Neurologic Neurologic: Denies headache(s) Psychiatric Psychiatric: Denies anxiety Endocrine Endocrinology: Denies cold intolerance Hematologic/Lymphatic Hematologic/Lymphatic: Denies easy bleeding or easy bruising Allergic/Immunologic Allergic/Immunologic ED: Denies mouth swelling, tongue swelling, urticaria or other [facility] Medical History (Updated 06/28/23 @ 10:[address] Pedro Bay MD) Major depression Home Medications buspirone 5 mg tablet 5 mg PO BID PRN anxiety #60 tabs 09/06/20 [Rx Last Taken Unknown] norethindrone 1 mg-e. estradiol 20 mcg (24)-iron 75 mg (4) chew tablet (Minastrin 24 Fe) 1 tablet PO QDAY #28 tabs 09/06/20 [Rx Last Taken Unknown] sertraline 100 mg tablet 150 mg (1.5 x 100 mg) PO DAILY Check with primary doctor #45 tabs 09/06/20 [Rx Last Taken Unknown] Allergy/AdvReac Type Severity Reaction Status Date / Time clarithromycin [From Biaxin] Allergy Hives Verified 06/28/23 09:40 Family History Grandfather Myocardial infarction Surgical History S/P Social History Smoking Status: Never smoker alcohol intake: never substance use type: does not use caffeine: Yes what type of physical activity do you participate in: none seatbelt use: always do you feel safe at home: Yes additional social history: [employer] at [employer] Patient works at [employer] Dental EXAM Physical Exam Narrative Exam Narrative: 32-year-old female no acute distress vital signs stable. Temperature 100. She does not look septic or toxic. H EENT exam mild dry mucous membranes. Pupils round react light. Neck nontender. No lymphadenopathy. No meningismus. Lungs clear to auscultation bilaterally. Dry cough. No rales, rhonchi or wheezing. Equal symmetrical. Heart regular rhythm rate about 95 no murmur. Chest wall nontender. Abdomen soft nontender. Back unremarkable. Moving all 4 extremities. 5 out of 5 financial writer strength. Dorsi plantarflexion intact. She has normal 5 out of 5 financial writer strength. No drift. She is answering questions following commands. Fingertip to nose and [id number] within normal limits bilaterally. Neurologic exam normal. NIH 0. Const Vital Signs: 06/28/23 09:40 06/28/23 09:55 Temperature 100 F H Temperature Source Temporal Pulse Rate 94 Respiratory Rate 22 H Respiratory Effort Short of Breath Respiratory Depth Normal Blood Pressure 126/86 H Blood Pressure Mean 99 Pulse Ox 100 Oxygen Delivery Method Room Air Room Air Positive well nourished and well developed; Negative for obese, cachectic or contractures General Appearance ED: well developed and NAD; Negative for cachectic, contractures, cyanotic, diaphoretic or pallor Nutritional Appearance: Negative for cachectic or obese HEENT Reports dry mucous membranes; Denies moist mucous membranes normocephalic and atraumatic; Negative for scalp tenderness Face and Sinus: Negative for sinus tenderness Mouth ED: Yes dry mucous membranes Mouth: dry mucous membranes Throat: posterior oropharynx normal; Negative for tonsils abnormal or posterior oropharynx abnormal Eyes PERRL and EOMs intact bilaterally General Eye ED: Negative for pale conjunctiva or scleral icterus Neck no lymphadenopathy, supple, no meningeal signs and no JVD General: Negative for anterior neck swelling or lymphadenopathy Resp normal respiratory effort and clear to auscultation bilaterally Effort and Inspection: Negative for retractions or pain with movement Auscultation: Negative for rales, rhonchi or wheezes Cardio S1 normal heart sound, S2 normal heart sound and no murmurs Rate: regular rate Rhythm: regular rhythm GI non-tender, non-distended and no masses Inspection: Negative for abdominal distention Auscultation: normoactive bowel sounds Palpation: soft; Negative for tender or guarding Back/Spine no CVA tenderness and normal ROM General Back: Negative for CVA tenderness Cervical Spine: Negative for cervical spine tenderness Thoracic Spine / Upper Back: Negative for thoracic spinal tenderness Lumbar Spine / Lower Back: Negative for lumbar spinal tenderness Sacrum: Negative for tenderness Extremity normal to inspection and full ROM General Extremety ED: Negative for cyanosis or tenderness General Extremity: Negative for cyanosis Neuro oriented x3 and CN's II-XII intact bilaterally Sensorium / Orientation: alert, oriented to person, oriented to place and oriented to time; Negative for orientation impaired, lethargic or stuporous Motor Exam: strength 5/5 throughout Psych mental status grossly normal Appearance: Negative for other Attitude: No agitated Mood & Affect: Negative for depressed, anxious or tearful Skin General Skin Exam: Negative for jaundice or pallor Lesions: no lesions Rashes: no rashes Trauma: Negative for abrasion, laceration or puncture MDM MDM MDM Narrative Medical decision making narrative: 32-year-old with influenza that feels lightheaded when she stands. She is a completely normal neurologic exam. Urgent care center for further evaluation she does not need any brain imaging. She will be given IV fluids. I think this is more from orthostasis. Repeat exam patient is doing well at 10:55 AM. Awaiting the IV fluids to finish her about two [address] done. She is feeling better. I do not think she needs any further testing. Fluids and rest. Tylenol Motrin at home. Off work the next 3 days. Return if worse. Follow-up with her primary care physician as needed. History & Record Review Discussion w/independent historian: Patient Additional record(s) reviewed:: Prior inpatient record, Prior outpatient record, Prior ED visit and Prior labs Discharge Plan Triage Chief Complaint: Dizziness ED Provider: Pedro Bay Dx/Rx/DC Orders Clinical Impression: Acute dehydration, Influenza Instructions: The Flu (Influenza), ED Dehydration (Adult) Prescriptions: No Action buspirone 5 mg tablet 5 mg PO BID PRN (Reason: anxiety) Qty: 60 6RF sertraline 100 mg tablet 150 mg PO DAILY Qty: 45 12RF norethindrone-e.estradiol-iron [Minastrin 24 Fe] 1 mg-20 mcg(24) /75 mg (4) tablet,chewable 1 tablet PO QDAY Qty: 28 12RF Primary Care Provider: Scotty Shine Referrals: Scotty Shine MD [Primary Care Provider] - 1 Week if not improving Activity Restrictions/Additional Instructions: Plenty of fluids including water, Gatorade and 7-Up. Rest. Alternate Tylenol and Motrin for any fever and body aches. Off work next 3 days. Follow-up with your doctor if not improving or return if feeling a lot worse. Disposition Disposition: Home, Self Care
[2023-06-28] MEDS: 0.9% Normal Saline (1000mL) 1,000 ML 1000 ML IV (10:27)
[2023-06-28] MEDS: Acetaminophen 500 MG Tablet 1000 MG PO (10:28)
[2023-06-28 11:40] VITALS: BP 118/76; PULSE 89; RESP 20; TEMP 37.4; O2SAT 100
== END 2023-06-28 11:41 | disposition home or self-care (01) ==
PROVIDERS: Emergency Provider Emergency Medicine; PCP Family Medicine; Visit Provider Emergency Medicine
DX: E86.0 Dehydration (principal); J10.1 Influenza due to other identified influenza virus with other respiratory manifestations
CPT/HCPCS: 96360; 99283; J7030